=== PATIENT | female | born 1945 | race Caucasian/White ===

== ENCOUNTER 2019-05-26 14:58 | Emergency (ER) | payer MEDICARE, BC ==
[2019-05-26 16:09] LABS: ANION GAP 10.6 mmol/L (5-15)
--- NOTE | 2019-05-26 16:12 | CT ---
[id number] CT/CT Head Stroke Protocol EXAM: NONCONTRAST HEAD CT INDICATION: Facial droop, eyedrop and left facial pain. COMPARISON: None. DISCUSSION: The ventricles and sulci are normal in size and configuration. Partially empty sella. The howell and white matter are normal in attenuation. No mass effect or midline shift. No acute hemorrhage or extra-axial fluid collection. No acute territorial infarct is identified. Mild to moderate paranasal sinus mucosal thickening. Fluid and soft tissue secretions in the right sphenoid sinus compatible with acute sinusitis. IMPRESSION: 1. Sinusitis. 2. No acute intracranial findings. Murphy Pedraza MD 05/26/19 1678 Thank you for allowing us to participate in the care of your patient.
--- NOTE | 2019-05-26 16:16 | EDM.PDOC ---
ED HPI GENERAL MEDICAL PROBLEM - General Chief Complaint: Neuro Symptoms/Deficits Stated Complaint: jaw pain, left facial droup Time Seen by Provider: 05/26/19 15:00 Source of Information: Reports: Patient History Limitations: Reports: No Limitations - History of Present Illness INITIAL COMMENTS - FREE TEXT/NARRATIVE: 74-year-old female presents emergency room with complaints of left facial pain swelling drooping and numbness. Patient states that she's been experiencing some increasing left facial pain it's been gradual over the last 2 weeks. Upon waking up this morning she noticed swelling and increased intensity of pain with drooping and inability to completely close her left eye. She had a root canal in a crown placement about 3-1/2 weeks ago. The seem to be uneventful. She denies any significant illnesses. She denies significant headache. She has noticed some change in her taste as well as sensitivity to hearing on the left side. His nose some paralysis over the left side of her face. She denies any weakness in her extremities upper or lower. His nose a little bit discomfort into her left side of her neck and a mild sore throat. She denies any fever or chills. She denies visual changes. She notices some eye irritation due to the inability to fully close her eye. She is no change in her speech she denies drooling. She denies any other significant past medical history. She does have history of sleep apnea and fibromyalgia and hypothyroid. Onset: Gradual Onset Date: 05/25/19 Duration: Hour(s):, Constant Location: Reports: Face Quality: Reports: Burning Severity: Moderate Improves with: Reports: None Worsens with: Reports: None Associated Symptoms: Denies: Confusion, Chest Pain, Diaphoresis, Fever/Chills, Nausea/Vomiting, Shortness of Breath, Syncope, Weakness - Related Data Allergies Allergy/AdvReac Type Severity Reaction Status Date / Time Iodinated Contrast- Oral and Allergy Dizziness Verified 05/26/19 15:07 IV Dye levofloxacin [From Levaquin] Allergy Disorientat Verified 05/26/19 15:07 ion shrimp Allergy Anaphylactic Verified 05/26/19 15:07 Shock sulfamethoxazole Allergy Cannot Verified 05/26/19 15:07 Remember bactrim benzoate Allergy Hives Uncoded 05/26/19 15:07 shrimp flavor Allergy Anaphylactic Uncoded 05/26/19 15:07 Shock Home Meds: Home Meds Levothyroxine [Synthroid] 112 mcg PO DAILY 01/10/19 [History] Triamcinolone Acetonide [Triamcinolone Acetonide 0.1% Crm] 1 applic TOP DAILY PRN 01/10/19 [History] Etodolac 400 mg PO ASDIRECTED PRN 05/26/19 [History] Past Medical History HEENT History: Reports: Cataract, Impaired Vision, Sinusitis Other HEENT History: dry macular degeneration Respiratory History: Reports: Sleep Apnea Gastrointestinal History: Reports: None Genitourinary History: Reports: Renal Calculus, UTI, Recurrent Other Genitourinary History: bladder tumor RESPIRATORY THERAPY ASSISTANT History: Reports: Other RESPIRATORY THERAPY ASSISTANT History: 4 children Musculoskeletal History: Reports: Arthritis, Fibromyalgia Endocrine/Metabolic History: Reports: Hypothyroidism, Obesity/BMI 30+ - Infectious Disease History Infectious Disease History: Reports: Chicken Pox, Measles, Mumps, Rubella - Past Surgical History HEENT Surgical History: Reports: Cataract Surgery, Tonsillectomy Respiratory Surgical History: Reports: None GI Surgical History: Reports: Appendectomy, Cholecystectomy, Colonoscopy Female Surgical History: Reports: Breast Biopsy Endocrine Surgical History: Reports: None Musculoskeletal Surgical History: Reports: None Social & Family History - Tobacco Use Smoking Status *Q: Never Smoker - Caffeine Use Caffeine Use: Reports: Tea - Recreational Drug Use Recreational Drug Use: No ED ROS GENERAL - Review of Systems Review Of Systems: See Below Constitutional: Reports: No Symptoms HEENT: Reports: Ear Pain, Eye Pain, Glasses, Throat Pain, Other (ear ringing). Denies: Nose Pain, Rhinitis, Vertigo, Vision Change Respiratory: Denies: Shortness of Breath Cardiovascular: Denies: Chest Pain, Lightheadedness Endocrine: Reports: No Symptoms GI/Abdominal: Reports: No Symptoms : Reports: No Symptoms Musculoskeletal: Reports: No Symptoms Skin: Reports: No Symptoms Neurological: Reports: Numbness, Pre-Existing Deficit, Tingling. Denies: Confusion, Dizziness, Headache, Seizure, Syncope, Trouble Speaking, Difficulty Walking, Weakness, Change in Speech, Gait Disturbance Psychiatric: Reports: No Symptoms Hematologic/Lymphatic: Reports: No Symptoms Immunologic: Reports: No Symptoms ED EXAM, NEURO - Physical Exam Exam: See Below Exam Limited By: No Limitations General Appearance: Alert, WD/WN, No Apparent Distress, Other (Facial drooping left side. Drooping left eye) Eye Exam: Left Eye: Proptosis, Bilateral Eye: EOMI, PERRL Ears: Normal External Exam, Normal Canal, Hearing Grossly Normal, Normal TMs Nose: Normal Inspection, Normal Mucosa, No Blood Throat/Mouth: Normal Inspection, Normal Lips, Normal Teeth, Normal Gums, Normal Oropharynx, Normal Voice, No Airway Compromise, Other (Left facial drooping). No: Dysphagia Head Exam: Atraumatic, Normocephalic, Facial Tenderness (Left side), Sinus Tenderness (Left maxillary) Neck: Normal Inspection, Supple, Non-Tender, Full Range of Motion. No: Lymphadenopathy (L), Lymphadenopathy (R) Respiratory/Chest: No Respiratory Distress, Lungs Clear, Normal Breath Sounds, No Accessory Muscle Use, Chest Non-Tender Cardiovascular: Normal Peripheral Pulses, Regular Rate, Rhythm, No JVD, No Murmur GI/Abdominal: Soft, Non-Tender Neurological: Alert, Normal Mood/Affect, Normal Dorsiflexion, CN II-XII Intact ( Cranial nerve VII palsy), Normal Plantar Flexion, Normal Gait, Normal Reflexes, No Motor/Sensory Deficits, Oriented x 3, Other (Clonus absent. Briana's absent ). No: Babinski DTR: 0: Tricep (R), Tricep (L), Patella (R), Patella (L), Achilles (R), Achilles (L), 1+: Bicep (R), Bicep (L) Back Exam: Normal Inspection, Full Range of Motion Extremities: Normal Inspection, Normal Range of Motion, Non-Tender, No Pedal Edema, Normal Capillary Refill Psychiatric: Normal Affect, Normal Mood Skin Exam: Warm, Dry, Intact, Normal Color, No Rash Course - Vital Signs Last Recorded V/S: Last Vital Signs Temp 98.0 F 05/26/19 15:03 Pulse 76 05/26/19 15:03 Resp 20 05/26/19 15:03 BP 142/85 H 05/26/19 15:03 Pulse Ox 97 05/26/19 15:03 - Orders/Labs/Meds Orders: Active Orders 24 hr Category Date Time Status Head wo Cont [CT] Stat Exams 05/26/19 15:32 Ordered BASIC METABOLIC PANEL,BMP [CHEM] Stat Lab 05/26/19 15:35 Ordered CBC WITH AUTO DIFF [HEME] Stat Lab 05/26/19 15:35 Ordered ESR [SEDIMENTATION RATE MANUAL] [HEME] Stat Lab 05/26/19 15:35 Ordered Labs: Laboratory Tests 05/26/19 Range/Units 15:45 WBC 7.39 (5.00-10.00) 10^3/uL RBC 4.38 (3.80-5.50) 10^6/uL Hgb 14.3 (12.0-16.0) g/dL Hct 42.9 (37.0-47.0) % MCV 97.9 H (82.0-92.0) fL MCH 32.6 H (27.0-31.0) pg MCHC 33.3 (32.0-36.0) g/dL RDW 13.0 (11.5-14.5) % Plt Count 218 (150-400) 10^3/uL MPV 10.6 H (7.4-10.4) fL Immature Gran % (Auto) 0.1 (0.0-5.0) % Neut % (Auto) 44.3 L (50.0-70.0) % Lymph % (Auto) 40.3 H (20.0-40.0) % [place] % (Auto) 7.0 (2.0-8.0) % Eos % (Auto) 7.2 H (1.0-3.0) % Baso % (Auto) 1.1 H (0.0-1.0) % Immature Gran # (Auto) 0.01 (0.00-0.50) 10^3/uL Neut # (Auto) 3.27 (2.50-7.00) 10^3/uL Lymph # (Auto) 2.98 (1.00-4.00) 10^3/uL [place] # (Auto) 0.52 (0.10-0.80) 10^3/uL Eos # (Auto) 0.53 H (0.10-0.30) 10^3/uL Baso # (Auto) 0.08 (0.00-0.10) 10^3/uL - Radiology Interpretation Free Text/Narrative:: Noncontrast head CT: Discussion: The ventricles and sulci are normal in size and configuration. Partially empty sella. [place]-white matter are normal in attenuation No mass effect or midline shift No acute hemorrhage or extra-axial fluid collection No acute tentorial infarct is identified Mild to moderate paranasal sinus mucosal thickening. Fluid and soft tissue secretions in the right sphenoid sinus compatible with acute sinusitis Impression: 1. Sinusitis 2. No acute intracranial findings. Departure - Departure Time of Disposition: 16:53 Disposition: Home, Self-Care 01 Condition: Good Clinical Impression: Facial paralysis/Ringoes palsy Acute sinusitis Qualifiers: Sinusitis location: sphenoidal Recurrence: non-recurrent Qualified Code(s): J01.30 - Acute sphenoidal sinusitis, unspecified - Discharge Information Referrals: David Brown BLADDER TRIMMER [Primary Care Provider] - - My Orders Last 24 Hours: My Active Orders 05/26/19 15:32 Head wo Cont [CT] Stat 05/26/19 15:35 BASIC METABOLIC PANEL,BMP [CHEM] Stat CBC WITH AUTO DIFF [HEME] Stat ESR [SEDIMENTATION RATE MANUAL] [HEME] Stat - Assessment/Plan Last 24 Hours: My Active Orders 05/26/19 15:32 Head wo Cont [CT] Stat 05/26/19 15:35 BASIC METABOLIC PANEL,BMP [CHEM] Stat CBC WITH AUTO DIFF [HEME] Stat ESR [SEDIMENTATION RATE MANUAL] [HEME] Stat Assessment:: 1. Singh's palsy 2. Acute sinusitis Plan: 1. Rest 2. Avoid excessive heat outdoors 3. Prednisone 20 mg 1 by mouth twice a day for 7 days 4. Valacyclovir 1 g 1 by mouth 3 times a day for 7 day. 5. Z-Bridger 2 by mouth first day 1 by mouth for 4 days for acute sinusitis. 6. lacri-lube at night and when necessary ointment applied to the eyes 7. Artificial tears 1-2 drops as needed for dryness 8. Follow-up with your primary care next week for recheck. 9. Return to the emergency room if any change in neurologic symptoms or worsening.
== END 2019-05-26 16:55 | disposition home or self-care (01) ==
LOC: KA.ED 14:58
DX: G51.0 Bell's palsy (principal); J01.30 Acute sphenoidal sinusitis, unspecified; M19.90 Unspecified osteoarthritis, unspecified site; Z91.041 Radiographic dye allergy status; Z91.013 Allergy to seafood; Z88.1 Allergy status to other antibiotic agents; Z88.2 Allergy status to sulfonamides; E03.9 Hypothyroidism, unspecified; E66.9 Obesity, unspecified; Z79.899 Other long term (current) drug therapy; Z98.49 Cataract extraction status, unspecified eye; Z98.890 Other specified postprocedural states; Z90.49 Acquired absence of other specified parts of digestive tract
CPT/HCPCS: 36415; 70450; 80048; 85025; 85651; 99284; 99285-25

== ENCOUNTER 2019-08-13 09:33 | Emergency (ER) | payer MEDICARE, BC ==
[2019-08-13] MEDS ORDERED: cefTRIAXone 1 GM Vial IM ONE (10:32)
[2019-08-13] MEDS ORDERED: Cephalexin 250 MG Cap PO ONE (10:32)
[2019-08-13] MEDS ORDERED: Phenazopyridine 100 MG Tab PO ONE (10:32)
[2019-08-13] MEDS ORDERED: Lidocaine 1% 20 ML MDV ONE (10:41)
--- NOTE | 2019-08-13 10:42 | EDM.PDOC ---
ED HPI GENERAL MEDICAL PROBLEM - General Chief Complaint: Genitourinary Problem Stated Complaint: UNABLE TO VOID Time Seen by Provider: 08/13/19 10:32 Source of Information: Reports: Patient History Limitations: Reports: No Limitations - History of Present Illness INITIAL COMMENTS - FREE TEXT/NARRATIVE: Patient is a 74-year-old female who presents to the emergency Department this morning with a complaint of dysuria and urgency. Patient states that this began a couple days ago but seemed to get worse today with a feeling of fullness. Patient denies abdominal pain, nausea, vomiting, diarrhea, blood in the urine, vaginal bleeding, fever, chest pain, shortness of breath, or any trauma. Onset: Gradual Duration: Day(s): Location: Reports: Abdomen Quality: Reports: Burning Severity: Mild Improves with: Reports: None Worsens with: Reports: None Associated Symptoms: Reports: No Other Symptoms. Denies: Chest Pain, Fever/ Chills, Nausea/Vomiting Perineal Area Pain Score (Numeric/FACES): 2 - Related Data Allergies Allergy/AdvReac Type Severity Reaction Status Date / Time Iodinated Contrast Media Allergy Dizziness Verified 08/13/19 09:46 levofloxacin [From Levaquin] Allergy Disorientat Verified 08/13/19 09:46 ion shrimp Allergy Anaphylactic Verified 08/13/19 09:46 Shock sulfamethoxazole Allergy Cannot Verified 08/13/19 09:46 Remember bactrim benzoate Allergy Hives Uncoded 08/13/19 09:46 shrimp flavor Allergy Anaphylactic Uncoded 08/13/19 09:46 Shock Home Meds: Home Meds Levothyroxine [Synthroid] 112 mcg PO DAILY 01/10/19 [History] Triamcinolone Acetonide [Triamcinolone Acetonide 0.1% Crm] 1 applic TOP DAILY PRN 01/10/19 [History] Etodolac 400 mg PO ASDIRECTED PRN 05/26/19 [History] Cephalexin [Keflex] 500 mg PO TID #21 capsule 08/13/19 [Rx] Phenazopyridine HCl [Pyridium] 100 mg PO TID #6 tablet 08/13/19 [Rx] Past Medical History HEENT History: Reports: Cataract, Impaired Vision, Sinusitis Other HEENT History: dry macular degeneration Respiratory History: Reports: Sleep Apnea Gastrointestinal History: Reports: None Genitourinary History: Reports: Renal Calculus, UTI, Recurrent Other Genitourinary History: bladder tumor TAFE LECTURER History: Reports: Other TAFE LECTURER History: 4 children Musculoskeletal History: Reports: Arthritis, Fibromyalgia Endocrine/Metabolic History: Reports: Hypothyroidism - Infectious Disease History Infectious Disease History: Reports: Shingles - Past Surgical History Head Surgeries/Procedures: Reports: None HEENT Surgical History: Reports: Cataract Surgery, Tonsillectomy Respiratory Surgical History: Reports: None GI Surgical History: Reports: Appendectomy, Cholecystectomy Female Surgical History: Reports: Breast Biopsy Musculoskeletal Surgical History: Reports: None Social & Family History - Family History Family Medical History: Noncontributory - Caffeine Use Caffeine Use: Reports: Tea ED ROS GENERAL - Review of Systems Review Of Systems: ROS reveals no pertinent complaints other than HPI. Constitutional: Reports: No Symptoms HEENT: Reports: No Symptoms Respiratory: Reports: No Symptoms Cardiovascular: Reports: No Symptoms Endocrine: Reports: No Symptoms GI/Abdominal: Reports: No Symptoms : Reports: Dysuria, Urgency Musculoskeletal: Reports: No Symptoms Skin: Reports: No Symptoms Neurological: Reports: No Symptoms Psychiatric: Reports: No Symptoms Hematologic/Lymphatic: Reports: No Symptoms Immunologic: Reports: No Symptoms ED EXAM, RENAL/ - Physical Exam Exam: See Below Exam Limited By: No Limitations General Appearance: Alert, WD/WN, No Apparent Distress Throat/Mouth: Normal Inspection, Normal Oropharynx, No Airway Compromise Respiratory/Chest: No Respiratory Distress, Lungs Clear, Normal Breath Sounds, No Accessory Muscle Use, Chest Non-Tender Cardiovascular: Regular Rate, Rhythm, No Murmur GI/Abdominal: Normal Bowel Sounds, Soft, Non-Tender, No Organomegaly, No Distention, No Abnormal Bruit, No Mass Back Exam: Normal Inspection. No: CVA Tenderness (L), CVA Tenderness (R) Extremities: Normal Inspection, No Pedal Edema Neurological: Alert, Oriented, Normal Cognition Psychiatric: Normal Affect, Normal Mood Skin Exam: Warm, Dry, Intact, Normal Color, No Rash Course - Vital Signs Last Recorded V/S: Last Vital Signs Temp 96.2 F 08/13/19 09:42 Pulse 71 08/13/19 09:42 Resp 16 08/13/19 09:42 BP 135/74 08/13/19 09:42 Pulse Ox 98 08/13/19 09:42 - Orders/Labs/Meds Orders: Active Orders 24 hr Category Date Time Status CULTURE URINE [RM] Stat Lab 08/13/19 10:20 Ordered Labs: Laboratory Tests 08/13/19 Range/Units 09:52 Specimen Type Urincc Urine Color Light yellow (YELLOW) Urine Appearance Slightly cloudy H (CLEAR) Urine pH 6.5 (5.0-9.0) Ur Specific [place] <= 1.005 (1.005-1.030) Urine Protein Negative (NEGATIVE) mg/dL Urine Glucose (UA) Negative (NEGATIVE) mg/dL Urine Ketones Negative (NEGATIVE) mg/dL Urine Occult Blood Moderate H (NEGATIVE) Urine Nitrite Negative (NEGATIVE) Urine Bilirubin Negative (NEGATIVE) Urine Urobilinogen 0.2 (0.2-1.0) E.U./dL Ur Leukocyte Esterase Moderate H (NEGATIVE) Urine RBC 0-5 (0-5) /HPF Urine WBC >100 H (0-5) /HPF Ur Epithelial Cells Few /LPF Urine Bacteria Few (NONE TO FEW) /HPF Meds: Medications Discontinued Medications Generic Name Dose Route Start Last Admin Trade Name Freq PRN Reason Stop Dose Admin Ceftriaxone Sodium 1 gm 08/13/19 10:32 Rocephin IM 08/13/19 10:33 ONETIME ONE Cephalexin 1,000 mg 08/13/19 10:32 Keflex PO 08/13/19 10:33 ONETIME ONE Phenazopyridine HCl 200 mg 08/13/19 10:32 Pyridium PO 08/13/19 10:33 ONETIME ONE - Re-Assessments/Exams Free Text/Narrative Re-Assessment/Exam: 08/13/19 10:41 Patient afebrile, vital signs stable, given 1 g IM Rocephin, 500 mg Keflex, and 100 mg Pyridium in ER. Prescription for Keflex and Pyridium and follow-up with PCP in 3 days. Urine culture pending Departure - Departure Time of Disposition: 10:43 Disposition: Home, Self-Care 01 Condition: Good Clinical Impression: UTI, Urinary tract infectious disease - Discharge Information Prescriptions: Cephalexin [Keflex] 500 mg PO TID #21 capsule Phenazopyridine HCl [Pyridium] 100 mg PO TID #6 tablet Instructions: Urinary Tract Infection, Adult, [id number], Antibiotic Medicine , Adult, [id number], Urine Culture and Sensitivity Testing Referrals: Kevin,David M, STORAGE BATTERY INSPECTOR AND TESTER [Primary Care Provider] - Forms: ED Department Discharge Additional Instructions: Follow-up at [facility] in 3 days. Return to emergency department sooner if symptoms continue or worsen. Take medication as directed. - My Orders Last 24 Hours: My Active Orders 08/13/19 10:20 CULTURE URINE [RM] Stat - Assessment/Plan Last 24 Hours: My Active Orders 08/13/19 10:20 CULTURE URINE [RM] Stat Assessment:: UTI Plan: Follow up PCP
[2019-08-13] MEDS ORDERED: cefTRIAXone 1 GM Vial ONE (10:47)
== END 2019-08-13 10:55 | disposition home or self-care (01) ==
LOC: KA.ED 09:33
DX: N39.0 Urinary tract infection, site not specified (principal); E03.9 Hypothyroidism, unspecified; Z88.1 Allergy status to other antibiotic agents; Z79.891 Long term (current) use of opiate analgesic
CPT/HCPCS: 81001; 96372; 99283; J0696; 87086

== ENCOUNTER 2021-09-01 06:57 | Day surgery (SDC) | payer MEDICARE, BC ==
[2021-09-01] MEDS ORDERED: Sodium Chloride 0.9% 10 ML Syringe FLUSH PRN (07:00)
[2021-09-01] MEDS: Lactated Ringers 1,000 ML IV SCH (07:32)
[2021-09-01] MEDS ORDERED: Bupivacaine 0.5% 30 ML SDV ONE (07:52)
[2021-09-01] MEDS ORDERED: Propofol 200 MG/20 ML SDV ONE (08:10)
[2021-09-01] MEDS ORDERED: Lidocaine 0.5% 50 ML SDV ONE (08:10)
[2021-09-01] MEDS ORDERED: ceFAZolin 1 GM Vial ONE (08:10)
[2021-09-01] MEDS: Bupivacaine 0.5% 10 ML SDV ONE (08:17)
--- NOTE | 2021-09-01 11:22 | PCM.OPNOTE ---
- General Post-Op/Procedure Note Date of Surgery/Procedure: 09/01/21 Operative Procedure(s): Rt carpal tunnel decompression and release of trigger finger Rt middle finger. Findings: Severe carpal tunnel syndrome and moderate constriction at the A1 latosha of the right middle finger noted. Pre Op Diagnosis: Right carpal tunnel syndrome and left trigger finger or involving the middle finger. Anesthesia Technique: Regional Block Primary Surgeon: Michelle Singh Complications: None Condition: Good Free Text/Narrative:: INFORMED CONSENT: Patient is here today for carpal tunnel decompression and release of trigger finger involving the right middle finger.. All aspects of this procedure have been discussed with the patient. All possible complications also, including possibility of infection, pain, bleeding and unknown complications. Anesthetic complications were handled by anesthesia department. The patient understands fully well. Patient did not have any further questions for me at the end of my interview. The patient wishes for me to proceed. PROCEDURE: Patient was kept in the supine position and the satisfactory Joe block anesthesia was administered. The Rt arm was thoroughly prepped and draped in the usual fashion. The tourniquet was placed to the Rt upper arm and a vertical incision was made in the palm directly distal to the distal wrist crease. The skin incision was deepened through the subcutaneous tissue, the palmar aponeurosis was incised and then we came down upon the transverse carpal ligament, which was opened along the line of the skin incision. Extreme care was taken to protect the median nerve below. Careful neurolysis was performed. Approximately 2 cc of Marcaine 0.5% was instilled into the wound and skin was closed using mattress sutures with 4 0 Nylon. . A sterile pressure dressing was applied. Next, we made a small horizontal incision on the palm directly opposite the A1 latosha and the third metatarsal head. Subcutaneous dissection was performed. We came down upon the tendon sheath which was opened vertically. Good release of the A1 latosha was obtained. We moved the finger and noted free movement without any restriction. Telfa pad was applied. The sterile pressure dressing was used to incorporate this incision as well. The patient tolerated both procedures well and was transferred to the recovery room in excellent condition.
== END 2021-09-01 10:55 | disposition home or self-care (01) ==
LOC: KA.SDS 06:57
PROVIDERS: ATTEND Family Medicine
DX: M65.332 Trigger finger, left middle finger (principal); G56.01 Carpal tunnel syndrome, right upper limb; M65.331 Trigger finger, right middle finger; G47.30 Sleep apnea, unspecified; Z98.890 Other specified postprocedural states; Z79.899 Other long term (current) drug therapy; Z88.8 Allergy status to other drugs, medicaments and biological substances; Z91.013 Allergy to seafood; Z91.041 Radiographic dye allergy status; Z90.49 Acquired absence of other specified parts of digestive tract
CPT/HCPCS: 01810; J0690; J2704; J3490; J7120